=== PATIENT | male | born 1950 | race Caucasian/White ===

== ENCOUNTER 2023-07-13 21:53 | Emergency (ER) | payer MEDICARE, OTHER, SELFPAY ==
[2023-07-13 21:55] VITALS: BP 110/58
--- NOTE | 2023-07-13 22:15 | ED.GENMED ---
History of Present Illness
General
Chief Complaint: Alcohol Problem
Source: patient
Exam Limitations: none
Time Seen by Provider: 07/13/23 22:01
Travel History
Have you had any contact with someone who has COVID-19?: No
Do you have any symptoms of coronavirus? Fever > 100 degrees, chills, cough, shortness of breath, sore throat, loss of taste or smell, muscle aches, or headache?: No
History of Present Illness
History of Present Illness:
72-year-old male presents with who states the patient fell coming up the stairs earlier tonight. She was upstairs and heard him fall. He noticed that he was slurring his speech and was concerned he had a stroke and brought him in. Later on
patient admits he had several gin and tonics tonight. He does not recall hitting his head. He is healthy and does not take any medications. No other complaints at this time
Phy Exam
Physical Exam
Physical Exam:
General: Well-developed male no acute respiratory distress
HEENT normocephalic pupils equal round reactive to light no obvious scalp abrasion or hematoma
Heart: Regular rate and rhythm no murmurs
Lungs: Clear no wheeze or rales
Abdomen soft nontender nondistended no guarding rebound normal bowel sound
Extremities: No cyanosis
Neurologic exam: Slightly slurred speech. No ataxia. Alert and oriented x 3. No facial asymmetry.
Scores
Withdrawal Assessment of Alcohol
Withdrawal Assessment Completed?: No
Course
Orders/Labs/Results
Orders:
Orders
07/13/23 22:15
CT Head W/o Iv Contrast Urgent
Comment:
Reason For Exam: fall
07/13/23 22:25
Alcohol Urgent
Complete Blood Count/With Diff Urgent
Comprehensive Metabolic Panel Urgent
Abnormal Lab Results
07/13/23
22:25
RBC 3.78 L 10^6/uL
(4.70-6.10)
Hct 38.0 L %
(39.0-52.0)
MCV 100.5 H fL
(80.0-94.0)
MCH 36.2 H pg
(27.0-31.0)
Neutrophils % 41.0 L %
(42.2-75.2)
Monocytes % 11.1 H %
(1.7-9.3)
Chloride 108 H mmol/L
(98-107)
Carbon Dioxide 21 L mmol/L
(22-30)
07/13/23 22:25
07/13/23 22:25
Vital Signs
Initial and Last Documented VS:
Initial Vital Signs
Temp Pulse Resp BP Pulse Ox
97.6 F 60 22 110/58 95
07/13/23 21:55 07/13/23 21:55 07/13/23 21:55 07/13/23 21:55 07/13/23 21:55
Last Documented Vital Signs
Temp Pulse Resp BP Pulse Ox
97.6 F 58 11 101/71 96
07/13/23 21:55 07/14/23 00:30 07/14/23 00:30 07/14/23 00:00 07/13/23 23:30
MDM/Problems Addressed
Differential Diagnosis Includes:
Slurred speech. Recent fall, question stroke versus trauma versus alcohol intoxication
Check labs including alcohol level. CT of the head pending.
*Critical Care Note
Total Time (30-74mins, 75-104mins- exclusive of procedures): Not Applicable
Update Note
Update Note:
CT head negative. Blood alcohol level 283. Suspect slurred speech was related to alcohol on top patient. No unilateral findings to suggest CVA at this time. Patient interested in talking to drug and alcohol abuse specialist. [facility] called
Patient spoke with [facility]. He is willing for outpatient help. The prescription for Ativan was sent to his pharmacy for potential withdrawal as he is stating he is stopping cold turkey
ED Attending Note
-
Portions of this chart may have been created with voice recognition software.� Occasional wrong word or��sound alike� substitutions may have occurred due to the inherent limitations of voice recognition software.
Discharge Plan
Departure
Patient Disposition: Home (Routine Discharge)
Date of Disposition: 07/14/23
Time of Disposition: 00:26
Patient with high blood pressure during this ER visit?: No
Discharge Problem:
Alcohol intoxication
Instructions: Alcohol Use Disorder (DC)
Prescriptions:
New
lorazepam [Ativan] 0.5 mg tablet
0.5 mg PO TID PRN (Reason: alcohol withdrawal) Qty: 10 0RF
Referrals:
Jacky Pham, DO [Family Provider] -
Activity Restrictions/Additional Instructions:
Please return here for worsening symptoms otherwise continue to seek help for your alcohol use
Interventions
Interventions:
*Risk Screen - Suicide Last Done: 07/13/23 22:00
*General Assessment Last Done: 07/13/23 22:24
*Neglect/Abuse Screening Last Done: 07/13/23 22:00
ED- Fall Risk Assessment Last Done: 07/13/23 23:00
*ED COVID-19 Vaccine History Last Done: 07/13/23 22:00
*Nursing Disposition Last Done: 07/14/23 00:39
ED-Musculoskeletal Assessment Last Done: 07/13/23 22:23
ED- Neurological Assessment Last Done: 07/13/23 23:00
ED-Psychological Assessment Last Done: 07/13/23 22:23
ED-Skin Assessment Last Done: 07/13/23 22:23
Discharge Date and Time
Discharge Date/Time: 07/14/23 00:40
Print Language: GHANAIAN
[2023-07-13 22:22] VITALS: BP 109/72
[2023-07-13 22:29] LABS: % Basophils 1.3 % (0-2); % Eosinophils 5.9 % (0-6); % Immature Granulocytes 0.4 % (0-0.5); % Lymphocytes 40.3 % (20.5-51.1); % Monocytes 11.1 % (1.7-9.3); Absolute Basophils 0.1 10^3/uL (0-0.2); Absolute Eosinophils 0.3 10^3/uL (0-0.7); Absolute Lymphocytes 2.2 10^3/uL (1.2-3.4); Absolute Monocytes 0.6 10^3/uL (0.1-0.6); Absolute Neutrophils 2.2 10^3/uL (1.4-6.5); Hemoglobin 13.7 g/dL (13.0-18.0); Mean Corp Hgb Conc. 36.1 g/dL (33.0-37.0); Mean Corpuscular Hgb 36.2 pg (27.0-31.0); Mean Corpuscular Volume 100.5 fL (80.0-94.0); Mean Platelet Volume 9.2 fL (7.4-10.4); Nucleated Red Blood Cells % 0 % (-); Platelet Count 173 10^3/uL (130-400); Red Blood Cell Count 3.78 10^6/uL (4.70-6.10); Red Cell Dist. Width 14.3 % (11.5-14.5); White Blood Cell Count 5.4 10^3/uL (4.8-10.8)
[2023-07-13 22:50] LABS: ALT (SGPT) 16 U/L (0-50); AST (SGOT) 32 U/L (17-59); Albumin 3.7 g/dl (3.5-5.0); Alkaline Phosphatase 69 U/L (38-126); Blood Urea Nitrogen 17 mg/dl (9-20); Calcium 9.1 mg/dl (8.4-10.2); Carbon Dioxide 21 mmol/L (22-30); Chloride 108 mmol/L (98-107); Glucose 94 mg/dl (70-99); Potassium 3.8 mmol/L (3.5-5.1); Sodium 140 mmol/L (135-145); Total Bilirubin 0.6 mg/dl (0.2-1.3); Total Protein 6.5 g/dl (6.3-8.2); eGFR > 60.00
[2023-07-13 22:57] VITALS: BP 116/76
[2023-07-13 22:59] VITALS: BP 116/76
[2023-07-13 23:00] VITALS: BP 110/71
[2023-07-13 23:04] LABS: Alcohol 283 mg/dl
[2023-07-14] VITALS: BP 101/71
== END 2023-07-14 00:40 | disposition home or self-care (01) ==
LOC: EMR 21:53
PROVIDERS: Physician Assistant; EMERGENCY PHYSICIAN Emergency Medicine; FAMILY PHYSICIAN Internal Medicine
DX: F10.129 Alcohol abuse with intoxication, unspecified (principal); Y90.8 Blood alcohol level of 240 mg/100 ml or more
CPT/HCPCS: 99284; 70450; 80053; 82077; 85025